=== PATIENT | male | born 1930 | race Caucasian/White ===

== ENCOUNTER 2018-03-20 10:23 | Emergency (ER) | payer OTHER, MEDICARE ==
[~2018-03-20] VITALS: Ht 175.3 cm; Wt 61.2 kg
--- NOTE | ~2018-03-20 | EKG ---
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1930 Requested By: Leif Lwaler Order Number: [id number] MD: Michele Malik Measurements Intervals [place] Rate: 52 P: 221 [place]: 266 QRS: -66 QRSD: 127 T: 53 QT: 442 QTc: 411 Interpretive Statements Sinus or ectopic atrial tachycardia Paired ventricular premature complexes Prolonged [place] interval Nonspecific IVCD with LAD Inferior infarct, old Anterior infarct, old No previous ECG available for comparison Electronically Signed On 03-22-2018 20:16:04 CAMPUS COORDINATOR by Michele Malik [email or web address] <ELECTRONICALLY SIGNED> By: Michele Malik MD 03/22/182015 05 05 Michele Malik MD /LEIDY
[2018-03-20 11:03] LABS: HEMATOCRIT 44.3 % (42.0-52.0); HEMOGLOBIN 15.5 gm/dL (14.0-18.0); MCHC 34.9 g/dL (28.0-37.0); MCV 94.4 fL (80.0-100.0); PLATELET COUNT 164 thou/uL (150-400); RBC 4.69 mil/uL (4.50-6.00); RDW 14.1 % (10.5-14.5); WBC 6.8 thou/uL (4.0-11.0)
[2018-03-20 11:12] LABS: ANION GAP 5 mmol/L (7-16); BUN 7 mg/dL (7-18); CALCIUM 9.4 mg/dL (8.5-10.1); CHLORIDE 100 mmol/L (98-107); CO2 31 mmol/L (21-32); CREATININE 0.8 mg/dL (0.7-1.3); GLUCOSE 95 mg/dL (74-106); POTASSIUM 3.5 mmol/L (3.5-5.1); SODIUM 136 mmol/L (136-145)
[2018-03-20 11:22] LABS: ALBUMIN 3.2 g/dL (3.4-5.0); SGOT 16 U/L (15-37); SGPT 15 U/L (30-65); TOTAL BILIRUBIN 0.9 mg/dL (<0.1-1.0); TOTAL PROTEIN 6.5 g/dL (6.4-8.2); TROPONIN-I <0.06 ng/mL (<0.06)
[2018-03-20 12:17] LABS: URINE BILIRUBIN NEGATIVE (Negative); URINE BLOOD NEGATIVE (Negative); URINE CLARITY CLEAR; URINE COLOR YELLOW; URINE GLUCOSE-RANDOM* NEGATIVE (Negative); URINE KETONES NEGATIVE (Negative); URINE LEUKOCYTES-REFLEX NEGATIVE (Negative); URINE NITRITE-REFLEX NEGATIVE (Negative); URINE PROTEIN (DIPSTICK) NEGATIVE (Negative); URINE UROBILINOGEN 0.2 E.U./dl (0.2-1.0)
[2018-03-20 12:27] LABS: AMP/METHAMP Negative (Negative); BARBITURATES Negative (Negative); BENZODIAZEPINES Negative (Negative); COCAINE Negative (Negative); METHADONE Negative (Negative); OPIATES Negative (Negative); PCP Negative (Negative)
[2018-03-20 12:30] LABS: ABSOLUTE NEUTROPHILS 3.7 thou/uL (1.4-8.2); ANISOCYTOSIS SLIGHT
[2018-03-20 16:08] VITALS: BP 154/96
== END 2018-03-20 16:36 ==
LOC: ER 10:23
PROVIDERS: Emergency Medicine
DX: R53.1 Weakness (principal); R53.81 Other malaise; R62.7 Adult failure to thrive; E03.9 Hypothyroidism, unspecified; Z87.891 Personal history of nicotine dependence; Z88.0 Allergy status to penicillin; Z88.2 Allergy status to sulfonamides